=== PATIENT | female | born 1960 | race Asian ===

== ENCOUNTER 2017-02-18 11:41 | Outpatient (CLI) | payer BC ==
[~2017-02-18 11:41] MED LIST: CRESTOR5 MG PO; TRIBENZO2 PO
== END 2017-02-19 05:20 | disposition home or self-care (01) ==
LOC: RAD 11:41
DX: M79.601 Pain in right arm (principal); M25.531 Pain in right wrist

== ENCOUNTER 2022-02-18 16:03 | Outpatient (CLI) | payer BC | END 2022-02-18 21:44 | disposition home or self-care (01) | LOC: US 16:03 | PROVIDERS: ATTEND Nurse Practitioner Family | DX: M79.89 Other specified soft tissue disorders (principal); M79.671 Pain in right foot | CPT/HCPCS: 36415; 84550 ==